=== PATIENT | male | born 1990 | race American Indian/Alaskan Native ===

== ENCOUNTER 2020-12-01 17:46 | Emergency (ER) | payer OTHER ==
[~2020-12-01] VITALS: Ht 180.3 cm; Wt 86.2 kg
[2020-12-01] MEDS ORDERED: CRUTCH1 EACH (19:06)
[2020-12-01] MEDS ORDERED: HYDROCODON-ACE1 EA10 PO (20:04)
== END 2020-12-01 19:26 | disposition home or self-care (01) ==
LOC: ED 17:46
DX: S92.001A Unspecified fracture of right calcaneus, initial encounter for closed fracture (principal); S93.402A Sprain of unspecified ligament of left ankle, initial encounter; X50.9XXA Other and unspecified overexertion or strenuous movements or postures, initial encounter; F17.200 Nicotine dependence, unspecified, uncomplicated
CPT/HCPCS: 73610; 73650; 99283-25